=== PATIENT | female | born 2000 | race Caucasian/White ===

== ENCOUNTER 2022-11-21 13:28 | Emergency (ER) | payer MEDICAID ==
[~2022-11-21] VITALS: Ht 175.3 cm; Wt 50.0 kg
[2022-11-21 13:45] VITALS: BP 128/75
[2022-11-21 14:33] LABS: BASOPHILS # (AUTO) 0.1 X10'3 (0-0.2); BASOPHILS % (AUTO) 0.7 % (0-1); EOSINOPHILS # (AUTO) 0.4 X10'3 (0-0.9); EOSINOPHILS % (AUTO) 3.4 % (0-6); HEMATOCRIT 40.2 % (35.0-45.0); HEMOGLOBIN 13.4 g/dl (12.0-16.0); LYMPHOCYTES # (AUTO) 2.3 X10'3 (1.1-4.8); LYMPHOCYTES % (AUTO) 21.4 % (21-51); MEAN CORPUSCULAR HEMOGLOBIN 30.2 PG (27.0-31.0); MEAN CORPUSCULAR HGB CONC 33.2 g/dL (33.0-36.5); MEAN CORPUSCULAR VOLUME 90.9 FL (78-98); MEAN PLATELET VOLUME 10.3 FL (7.4-10.4); MONOCYTES # (AUTO) 0.6 X10'3 (0-0.9); MONOCYTES % (AUTO) 5.4 % (2-12); NEUTROPHILS # (AUTO) 7.4 X10'3 (1.8-7.7); NEUTROPHILS % (AUTO) 69.1 % (42-75); PLATELET COUNT 253 X10'3 (140-440); RED BLOOD COUNT 4.43 X10'6 (4.20-5.60); RED CELL DISTRIBUTION WIDTH 12.9 % (11.5-14.5); WHITE BLOOD COUNT 10.7 X10'3 (4.5-11.0)
[2022-11-21 14:40] LABS: ALANINE AMINOTRANSFERASE 14 U/L (12-78); ALBUMIN 4.6 G/DL (3.4-5.0); ALBUMIN/GLOBULIN RATIO 1.4 (1.1-1.5); ALKALINE PHOSPHATASE 56 IU/L (46-116); ANION GAP 10 (8-16); ASPARTATE AMINO TRANSFERASE 15 U/L (10-37); BILIRUBIN,TOTAL 1.3 MG/DL (0.1-1.0); BLOOD UREA NITROGEN 7 MG/DL (7-18); BUN/CREATININE RATIO 10.4 (10.0-20.0); CHLORIDE 102 MMOL/L (99-107); CREATININE 0.67 MG/DL (0.40-0.90); GLUCOSE 109 MG/DL (70-104); LIPASE 86 U/L (73-393); POTASSIUM 3.7 MMOL/L (3.5-5.1); SODIUM 140 MMOL/L (135-145); TOTAL CARBON DIOXIDE 28.5 MMOL/L (24-32); TOTAL PROTEIN 7.9 G/DL (6.4-8.2); eGFR > 90 ML/MIN
[2022-11-21 14:47] LABS: CALCIUM 9.7 MG/DL (8.5-10.1)
[2022-11-21] MEDS ORDERED: normal saline 1000ML IV soln IVB ONE (16:00)
[2022-11-21] MEDS ORDERED: pantoprazole 40 MG vial IV ONE (16:00)
[2022-11-21] MEDS ORDERED: ondansetron/PF 4mg/2ml inj IV ONE (16:00)
[2022-11-21 16:03] LABS: HCG SERUM QL NEGATIVE
[2022-11-21] MEDS ORDERED: ketorolac tromethamine 15mg/ml inj. IV ONE (16:15)
--- NOTE | 2022-11-21 16:25 | NUR ---
ultrasound at bedside - IV fluid infusing
[2022-11-21] MEDS ORDERED: pantoprazole 40MG/NS 100ML BAG 100 ML IV ONE (17:25)
--- NOTE | 2022-11-21 17:48 | NUR ---
PT STATES THAT SHE IS FEELING MUCH BETTER AND IS DECLINING THE PROTONICS INFUSION. DR HORAN NOTIFIED
[2022-11-21] MEDS ORDERED: PANT-47 PO (18:12)
[2022-11-21] MEDS ORDERED: ONDA8TAB13 PO (18:12)
[2022-11-21] MEDS ORDERED: pantoprazole 40mg Tablet.DR PO SCH (18:15)
== END 2022-11-21 18:59 | disposition home or self-care (01) ==
LOC: ER 13:28
DX: N94.6 Dysmenorrhea, unspecified (principal); R11.2 Nausea with vomiting, unspecified; R10.31 Right lower quadrant pain; Z88.0 Allergy status to penicillin; Z88.1 Allergy status to other antibiotic agents
CPT/HCPCS: 36415; 76830; 76856; 80053; 83690; 84703; 85025; 93976; 96361; 96374; 96375; 99285; J1885; J2405; J7030

== ENCOUNTER 2023-02-02 17:36 | Inpatient (IN) | payer MEDICAID ==
[~2023-02-02] VITALS: Ht 175.3 cm; Wt 44.8 kg
[~2023-02-02 17:36] MED LIST: ONDA8TAB13 PO; PANT-47 PO
[2023-02-02 19:05] LABS: BASOPHILS # (AUTO) 0.1 X10'3 (0-0.2); BASOPHILS % (AUTO) 0.7 % (0-1); EOSINOPHILS # (AUTO) 0.1 X10'3 (0-0.9); EOSINOPHILS % (AUTO) 0.6 % (0-6); HEMATOCRIT 40.3 % (35.0-45.0); HEMOGLOBIN 13.6 g/dl (12.0-16.0); LYMPHOCYTES # (AUTO) 2.3 X10'3 (1.1-4.8); LYMPHOCYTES % (AUTO) 25.2 % (21-51); MEAN CORPUSCULAR HEMOGLOBIN 30.6 PG (27.0-31.0); MEAN CORPUSCULAR HGB CONC 33.8 g/dL (33.0-36.5); MEAN CORPUSCULAR VOLUME 90.6 FL (78-98); MEAN PLATELET VOLUME 9.2 FL (7.4-10.4); MONOCYTES # (AUTO) 0.5 X10'3 (0-0.9); MONOCYTES % (AUTO) 5.5 % (2-12); NEUTROPHILS # (AUTO) 6.2 X10'3 (1.8-7.7); PLATELET COUNT 226 X10'3 (140-440); RED BLOOD COUNT 4.45 X10'6 (4.20-5.60); WHITE BLOOD COUNT 9.1 X10'3 (4.5-11.0)
[2023-02-02 19:16] LABS: ALANINE AMINOTRANSFERASE 23 U/L (12-78); ALBUMIN 4.4 G/DL (3.4-5.0); ALBUMIN/GLOBULIN RATIO 1.2 (1.1-1.5); ALKALINE PHOSPHATASE 52 IU/L (46-116); ANION GAP 12 (8-16); ASPARTATE AMINO TRANSFERASE 16 U/L (10-37); BILIRUBIN,TOTAL 1.2 MG/DL (0.1-1.0); BLOOD UREA NITROGEN 12 MG/DL (7-18); BUN/CREATININE RATIO 17.6 (10.0-20.0); CALCIUM 9.3 MG/DL (8.5-10.1); CHLORIDE 102 MMOL/L (99-107); CREATININE 0.68 MG/DL (0.40-0.90); ETHANOL < 0.010 GM/DL (0.0-0.010); GLUCOSE 76 MG/DL (70-104); POTASSIUM 3.7 MMOL/L (3.5-5.1); SODIUM 138 MMOL/L (135-145); TOTAL CARBON DIOXIDE 23.6 MMOL/L (24-32); eGFR > 90 ML/MIN
[2023-02-02 20:38] LABS: URINE HCG NEGATIVE (NEG)
[2023-02-02 21:02] LABS: URINE AMPHETAMINE SCREEN NEGATIVE (Neg); URINE BARBITUATE SCREEN NEGATIVE (Neg); URINE BENZODIAZEPINES SCREEN POSITIVE (Neg); URINE CANNABINOID SCREEN POSITIVE (Neg); URINE COCAINE SCREEN NEGATIVE (Neg); URINE METHADONE SCREEN NEGATIVE (Neg); URINE OPIATE SCREEN NEGATIVE (Neg); URINE PHENCYCLIDINE SCREEN NEGATIVE (Neg)
--- NOTE | 2023-02-02 22:30 | NUR ---
PT BF STATED PT HAD STOMACH PAIN. PT STATED SAME. MD INFORMED VERBAL ORDER GIVEN PT REFUSED MEDICATION, NO MEDS GIVEN.
--- NOTE | 2023-02-03 01:24 | NUR ---
BF LEFT FOR THE EVENING. PT FOOD STORED IN THE FRIDGE IN OVERFLO DR HORAN TO EVAIL PT STOMACH PAIN
--- NOTE | 2023-02-03 03:55 | NUR ---
PT REQUESTED SOMETHING TO HELP HER SLEEP INFORMED PT REFUSED MEDICATION INFORMED
--- NOTE | 2023-02-03 08:05 | NUR ---
Pt resting in bed. No acute distress noted at this time.
--- NOTE | 2023-02-03 08:39 | NUR ---
Boyfriend at bedside.
--- NOTE | 2023-02-03 10:00 | NUR ---
PT'S PACKET WAS FAXED TO [facility] @[id number] BY DENNY
--- NOTE | 2023-02-03 11:01 | NUR ---
Note stephconcepción in ED - 02/03/23 at 1109 by MAURI Pt and family requested to speak to this nurse. Family and pt were very upset because they were told she would been seen by [facility] at 0800 this morning. This nurse explained that [facility] has many pts to see and would be in when they were able to. Family and pt expressed that her mental health being here is only getting worse and "she needs to be placed into a facility today". This nurse explained that placement for a famility may take some time and we cant promise when or if she will be placed. Pt and family expressed that "nobody here cares about mental health". This nurse reassured that we do care we just have many pts and [facility] will be by as soon as she can. Family and pt demanded that this nurse go tell [facility] to "speed things up". Nurse notified them that we cannot promise a time for when she will be seen. [facility] and charge nurse notified about conversation.
--- NOTE | 2023-02-03 11:10 | NUR ---
Pt and family requested to speak to this nurse. Family and pt were very upset because they were told she would been seen by [facility] at 0800 this morning. This nurse explained that [facility] has many pts to see and would be in when they were able to. Family and pt expressed that her mental health being here is only getting worse and "she needs to be placed into a facility today". This nurse explained that placement for a famility may take some time and we cant promise when or if she will be placed. Pt and family expressed that "nobody here cares about mental health". This nurse reassured that we do care we just have many pts and [facility] will be by as soon as she can. Family and pt demanded that this nurse go tell [facility] to "speed things up". Nurse notified them that we cannot promise a time for when she will be seen. [facility] and charge nurse notified about conversation. Carolyn Emanuel LVN
--- NOTE | 2023-02-03 14:23 | NUR ---
Received patient with boyfriend at side. techs asked to have personal items and she threw them at the techs.
--- NOTE | 2023-02-03 15:16 | NUR ---
[facility] evaluating patient. Boyfriend at bedside.
--- NOTE | 2023-02-03 15:20 | NUR ---
5150 upheld by [facility]
--- NOTE | 2023-02-03 15:33 | NUR ---
Patient states that she has been told that she has a hyperactive thyroid and that she has lost 20 pounds within the last month. She feels like she is in a constant panic. Boyfriend states that she has a history of depression and this new medical issue has made the depression worse. Patient states that she has pain when she eats.
[2023-02-03] MEDS ORDERED: PANT-47 PO (16:17)
--- NOTE | 2023-02-03 16:44 | NUR ---
Patient resting in bed. Boyfriend at bedside. No s/s of distress.
--- NOTE | 2023-02-03 17:32 | NUR ---
Patient informed of low TSH indicating hyperthyroidism and that she is not anemic at this time according to lab draws. Patient agitated when talking about any health issues stating "I already knew that"! Educated that a T4 level would be tested before any medications to be ordered by the PCP. Overall the patient is in an agitated state when assessed by staff. Provided active listening and therapeutic communication. Patient resting in bed with boyfriend bedside.
--- NOTE | 2023-02-03 18:13 | NUR ---
MD aware of high T4 and low TSH.
--- NOTE | 2023-02-03 18:30 | NUR ---
Pt received lying supine in hospital bed, HOB semi fowlers, boyfriend at bedside. Pt able to verbalize her needs. Pt is Faroese speaking. Pt awake, oriented x 4, verbalizes suicidal ideations. Pt verbalizing complaint of neglect in ER. She stated she wasn't attended during her stay. Active listening provided. She was previously at the doctor's office prior to ER stay and verbalized suicidal ideation. She was tearful during today's interview discussing medical history. For previous 3 years, she has ongoing health problems including joint pain, bone pain, numbness from knee to feet, loosing 20 lbs within last month due to new thyroid issue. Pt stated she may also have auto immune issues. Pt easily agitated during interview. Pt stated she didn't want to stay at this hospital multiple times. Pt explained 5150 hold and needing to be evaluated by Psychiatrist. She was dismissive during teaching but will need reinforcement. Pt denies headaches or pain. She verbalized SOB and unable to take deep breaths. Pt verbalizes anxiety but unwilling to take any pharmalogical interventions. Non Pharmalogical interventions provided. Pt requested her home blanket. Discussed with supervising RN, She agreed to providing patient with blanket. Pt verbalizes LBM 02/02. Pt stated she has poor appetite. Pt has sleeping issues due to increased noise at hospital. Pt offered ear plugs and declined. Pt is thin and well groomed. Pt has a tense and guarded posture. Pt mood is depressed. 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 Pt is easily irritable. Labile affect. Thought process circumstantial. Thought content depressive. Fair to poor insight.
--- NOTE | 2023-02-03 20:00 | NUR ---
Pt boyfriend left for evening. He provided his number. Pascual [phone]
--- NOTE | 2023-02-03 20:30 | NUR ---
Pt reading book. Provided 2 x applesauce. Pt declined soy drink.
--- NOTE | 2023-02-03 22:00 | NUR ---
PT escorted to [facility] CB x 1 security supervisor and 2 x [facility] staff via wheelchair.
[2023-02-03] MEDS ORDERED: mag hydrox/Alum hydrox/simeth 30ml oral suspension PO PRN (22:30)
[2023-02-03] MEDS ORDERED: acetaminophen 325mg tablet PO PRN ×2 (22:30)
[2023-02-03] MEDS ORDERED: magnesium hydroxide 30ml (MOM) UD suspension PO PRN (22:30)
[2023-02-03 22:34] VITALS: BP 123/94; PULSE 67; RESP 18; TEMP 97.9; O2SAT 99
[2023-02-03 23:00] VITALS: RESP 16
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
[2023-02-04 08:00] VITALS: BP 107/63; PULSE 90; RESP 14; TEMP 98.1; O2SAT 99
[2023-02-04] MEDS: pantoprazole 40mg Tablet.DR PO SCH (08:00)
--- NOTE | 2023-02-04 11:24 | NUR ---
Malnutrition Consult: Pt admit DX SI hx depression and hyperthyroidism per EMR. Pt reports 20 pound wt loss past month related to new DX thyroid issues w/ decreased intake EXPORT MANAGER per EMR. Current BMI 14.6 via standing scale w/ only wt hx 50kg reported wt 11/21/22 visit in EMR. This would be ~10% UBW loss in ~2.5 months though unable to confirm given lack of scaled wt hx. RD d/w dovetailer and other RN's on floor who all confirm pt visibly gaunt and emaciated. Given this pt meets minimum severe malnutrition criteria; MD notified. Pt PO 50% only protein first regular no lactose/gluten diet last night in EMR and ate no breakfast this AM per RN. RD d/w RN recommends Ensure Enlive TIDWM since lactose free and routine MVI if MD agreeable for nutrition repletion. Ensure now active in EMR-dietary notified. LBM 02/02 per EMR. Will monitor for further PO acceptance and nutrition intervention needs. Rec: 1. continue regular no lactose/gluten diet per MD 2. Ensure Enlive TIDWM to assist meeting needs; Ensures are lactose-free and appropriate 3. encourage meals/ONS intake 4. routine MVI for nutrition repletion 5. bowel care per rx 6. weekly wt Addendum: 02/04/23 at [address] Amended: Links added.
[2023-02-04] MEDS: multivitamins, therapeutics tablet PO SCH (11:50)
[2023-02-04] MEDS: lactose-reduced food (Ensure Enlive) - 237ml bottle PO SCH ×2 (13:00→18:06)
--- NOTE | 2023-02-04 17:58 | NUR ---
Nursing Progress Note: Problem: Brought in by [place] police on 5150 for DTS yesterday. Patient visited [facility] with reports of ongoing suicidal thoughts and a plan to crash her car if she doesnt get help right now. History of ongoing untreated depression, chronic back pain, unexplained abdominal pain, anemia, and hyperthyroidism. Interventions: Maintained a safe and supportive environment, provided clear and simple instructions, ensured contract for safety. Provided active listening and positive encouragement, and maintained Q 15min safety checks. Response: Received patient asleep in room. Patient did not get up for breakfast and refused am medication. Pt stated I dont want to be here. Patient received a visit from her boyfriend and sister today 1015. Placed order for Ensure and multivitamin per MD and Dietary. [place]er stated that Ensure is lactose free. Ordered lab total T3 per MD. Patient spent the majority of the day in bed napping. Patient is self-isolative. Performed 1:1 at bedside. Patient denies HI and AVH, however patient endorses SI stating Since Marta been here its gotten worse, I dont want to be here. If Im going to stay here, Im going to stay here for good. Patient states that she is still upset about the wait in the ER stating that they neglected her, it went too slow, and there was no communication. Performed active listening and therapeutic communication. Educated patient that she would be meeting with Dr. Ramsey today to discuss a plan. Patient refused multivitamin and ensure. Patient states I know I should probably take those for my body, but I dont want to. Educated patient on the importance of nutrition. Patient states that she only wants whole unprocessed foods. Patient requested ranch dressing and salad despite her report in the ER overflow that she was lactose intolerant. Patient states that avoiding lactose is a preference, not an actual allergy. Patient observed in community room coloring. Patient gives minimal answers during assessments and becomes agitated easily. Plan: Patient continues to require monitoring in a safe therapeutic environment.
[2023-02-04] MEDS ORDERED: ergocalciferol (vit D2) capsule 50,000 UNITS (1,250mcg) CAPSULE PO ONE ×2 (18:30→19:20)
[2023-02-04 19:00] VITALS: RESP 14; O2SAT 100
[2023-02-04 20:00] VITALS: BP 114/81; PULSE 66; RESP 14; TEMP 97.2; O2SAT 100
[2023-02-04] MEDS: naphazoline/pheniramine eye 1 DROP BOTTLE EACHEYE SCH (20:00)
[2023-02-04] MEDS: naproxen 500mg tablet PO SCH (21:19)
--- NOTE | 2023-02-05 04:50 | NUR ---
Nursing Progress Note: Christa Problem: Brought in by [place] police on 5150 for DTS yesterday. Patient visited [facility] with reports of ongoing suicidal thoughts and a plan to crash her car if she doesnt get help right now. History of ongoing untreated depression, chronic back pain, unexplained abdominal pain, anemia, and hyperthyroidism. Interventions: Maintained a safe and supportive environment, provided clear and simple instructions, administer medications/education/response. Provided active listening and positive encouragement, and maintained Q 15min safety checks. Response: Patient found in her room sitting at the window. Pt is unhappy about being here. Im not getting any help in here. Pt minimizes her suicidal ideations. Pt is guarded and withdrawn during 1:1. Pt upset over not getting her belongings that were brought in the morning. Pt was then upset over what was brought. Redirected pt. that she is here to get help with her mental health. Pt took a shower. Pt took her HS medications except the Vitamin D is not available. Pt isolates to herself and contracts for safety. Monitor for safety throughout the night. Plan: Patient continues to require monitoring in a safe therapeutic environment.
[2023-02-05 07:07] VITALS: BP 102/63; PULSE 62; RESP 16; TEMP 98.1; O2SAT 100
[2023-02-05] MEDS: multivitamins, therapeutics tablet PO SCH ×2 (08:00→08:42)
[2023-02-05] MEDS: naproxen 500mg tablet PO SCH ×2 (08:00→08:42)
[2023-02-05] MEDS: pantoprazole 40mg Tablet.DR PO SCH ×2 (08:00→08:42)
[2023-02-05] MEDS: lactose-reduced food (Ensure Enlive) - 237ml bottle PO SCH ×2 (08:39→13:34)
[2023-02-05] MEDS: naphazoline/pheniramine eye 1 DROP BOTTLE EACHEYE SCH (08:42)
[2023-02-05 09:27] LABS: CREATINE KINASE 48 U/L (26-192)
[2023-02-05 09:56] LABS: RHEUM FACTOR QUAL REFLEX TITER NEGATIVE (Neg)
[2023-02-05] MEDS ORDERED: NAPHAZOLINE EACHEYE (12:17)
[2023-02-05] MEDS ORDERED: [UNRECOGNIZED DRUG - OTHER] EACHEYE (12:17)
--- NOTE | 2023-02-05 14:10 | NUR ---
DISCHARGE PLAN Christa is going to discharge home today. She may stay with other family for a couple days as her boyfriend whom she lives with works nights. She is going to follow up with [facility] in [place]. She has a therapist at [facility] with a standing appointment on at 2 PM. She reported her boyfriend or sister will pick her up today. TISH Ontiveros
--- NOTE | 2023-02-05 16:38 | NUR ---
DISCHARGE NOTE Patient was discharged from unit and escorted to lobby with security and NIC Arte[place]. Pt was A&Ox4. Pt left with all personal belongings including jewelry and cell phone. Pt's sister picked her up and pt will follow up with therapist on 02/12 at 1400.
== END 2023-02-05 14:00 | disposition home or self-care (01) | DRG 751 ==
LOC: ER 17:37 → ED HOLD 02-03 18:30 → ADULT MH 02-03 22:23
PROVIDERS: ADMIT Psychiatry & Neurology Psychiatry; ATTEND Psychiatry & Neurology Psychiatry
DX: F33.3 Major depressive disorder, recurrent, severe with psychotic symptoms (principal); E43 Unspecified severe protein-calorie malnutrition; R45.851 Suicidal ideations; Z20.822 Contact with and (suspected) exposure to COVID-19; H04.129 Dry eye syndrome of unspecified lacrimal gland; R68.2 Dry mouth, unspecified; E05.90 Thyrotoxicosis, unspecified without thyrotoxic crisis or storm; M13.0 Polyarthritis, unspecified; F17.210 Nicotine dependence, cigarettes, uncomplicated; G89.29 Other chronic pain; M54.9 Dorsalgia, unspecified; K21.9 Gastro-esophageal reflux disease without esophagitis; F12.10 Cannabis abuse, uncomplicated; Z88.0 Allergy status to penicillin; Z88.1 Allergy status to other antibiotic agents; Z86.16 Personal history of COVID-19; Z83.3 Family history of diabetes mellitus; Z84.89 Family history of other specified conditions; Z91.018 Allergy to other foods; Z68.1 Body mass index [BMI] 19.9 or less, adult
CPT/HCPCS: 36415; 71045; 80053; 80305; 80320; 81025; 82550; 83036; 83721; 84439; 84443; 84480; 85025; 86200; 86430; 87081; 87811; 99285